=== PATIENT | male | born 1980 | race Caucasian/White ===

== ENCOUNTER 2019-06-16 07:14 | Emergency (ER) | payer BC ==
[2019-06-16 08:06] LABS: Absolute Lymphocytes (CBC) 1.9 K/uL (0.7-4.9); Basophils % 0.7 % (0-1.3); MPV 7.7 fL (7.6-11.3); RBC Red Blood Cell Count 4.85 M/uL (4.33-5.43)
[2019-06-16 08:24] LABS: BUN Blood Urea Nitrogen 10 mg/dL (7-18); Bicarbonate 26 mmol/L (21-32); Glucose Level 100 mg/dL (74-106); Potassium 3.9 mmol/L (3.5-5.1); Sodium Level 139 mmol/L (136-145); Troponin (Emerg Dept Use Only) < 0.02 ng/mL (0.0-0.045)
--- NOTE | 2019-06-16 08:28 | ER ---
Nurse's Notes [facility] Name: Barrington Sunshine III Age: 39 yrs Sex: Male : 1980 Arrival Date: 06/16/2019 Time: 07:15 Bed 6 Private MD: Diagnosis: Chest pain, unspecified Presentation: 06/15 07:23 Chief complaint: Right sided chest pain that radiates to right shoulder and mild SOB hb since last night. Coronavirus screen: Proceed with normal triage. Ebola Screen: No symptoms or risks identified at this time. Initial Sepsis Screen: Does the patient meet any 2 criteria? No. Patient's initial sepsis screen is negative. Does the patient have a suspected source of infection? No. Patient's initial sepsis screen is negative. Risk Assessment: Do you want to hurt yourself or someone else? Patient reports no desire to harm self or others. Onset of symptoms was June 15, 2019. 07:23 Method Of Arrival: Ambulatory hb 07:23 Acuity: MISAEL 3 hb Triage Assessment: 07:26 General: Appears in no apparent distress. comfortable, obese, Behavior is cooperative, bp appropriate for age, anxious. Pain: Complains of pain in chest. EENT: No deficits noted. Neuro: No deficits noted. Cardiovascular: Rhythm is sinus rhythm. Respiratory: No deficits noted. GI: No signs and/or symptoms were reported involving the gastrointestinal system. : No signs and/or symptoms were reported regarding the genitourinary system. Derm: No deficits noted. Musculoskeletal: No deficits noted. Historical: - Allergies: 07:25 No Known Allergies; hb - Home Meds: 07:25 None [Active]; hb - PMHx: 07:25 None; hb - PSHx: 07:25 Shoulder - Left; Knee - Left; hb - Immunization history:: Adult Immunizations up to date. - Social history:: Smoking status: Patient denies any tobacco usage or history of. Screenin:26 Abuse screen: Denies threats or abuse. Denies injuries from another. Nutritional hb screening: No deficits noted. Tuberculosis screening: No symptoms or risk factors identified. Fall Risk None identified. Assessment: 07:27 General: SEE TRIAGE NOTE. bp 08:40 Reassessment: PT D/C HOME AMBULATORY, DX WITH NON-CARDIAC CHEST PAIN. bp Vital Signs: 07:23 BP 139 / 98; Pulse 97; Resp 20; Temp 97.2; Pulse Ox 98% ; Weight 149.69 kg; Height 6 hb ft. (182.88 cm); Pain 4/10; 08:01 BP 132 / 88; Pulse 84; Resp 16; Pulse Ox 96% ; bp 08:40 BP 133 / 88; Pulse 85; Resp 19; Pulse Ox 97% ; bp 07:23 Body Mass Index 44.76 (149.69 kg, 182.88 cm) hb ED Course: 07:15 Patient arrived in ED. as 07:25 Triage completed. hb 07:25 Sy Porter, RN is Primary Nurse. bp 07:25 Arm band placed on. hb 07:26 Patient has correct armband on for positive identification. Placed in gown. Bed in low hb position. Call light in reach. classroom monitor on. Pulse ox on. NIBP on. 07:27 Patient maintains SpO2 saturation greater than 95% on room air. bp 07:38 Romario Lizama FNP-C is PHCP. la1 07:38 Grey Dolan MD is Attending Physician. la1 07:38 Wellington Rivera MD is Attending Physician. la1 07:55 Inserted saline lock: 20 gauge in right forearm, using aseptic technique. Blood bp collected. 08:25 EKG done, by screen making technician. reviewed by Romario ROSAS. at1 08:40 No provider procedures requiring assistance completed. IV discontinued, intact, bp bleeding controlled, No redness/swelling at site. Pressure dressing applied. Administered Medications: No medications were administered Outcome: 08:27 Discharge ordered by MD. la1 08:40 Discharged to home ambulatory. bp 08:40 Condition: stable 08:40 Discharge instructions given to patient, Instructed on discharge instructions, follow up and referral plans. Demonstrated understanding of instructions, follow-up care. 08:41 Patient left the ED. bp Signatures: Heather Newby Amanda, news producer EKG Tat1 Romario Lizama FNP-C FNP-Cla1 Grisel Ceballos, RN RN hb Sy Porter, RN RN bp
--- NOTE | 2019-06-16 08:28 | EDPHYS ---
[facility] Bar[facility] Age: 39 yrs Sex: Male : 1980 Arrival Date: 06/16/2019 Time: 07:15 Bed 6 Private MD: ED Physician Wellington Rivera HPI: 06/15 07:43 This 39 yrs old Male presents to ER via Ambulatory with complaints of Chest la1 Pain. 07:43 The patient or guardian reports chest pain that is located primarily in the anterior la1 chest wall, right. The pain does not radiate. Associated signs and symptoms: The patient has no apparent associated signs or symptoms. The chest pain is described as sharp. Duration: The patient or guardian reports multiple episodes, that are intermittent. Modifying factors: the symptoms are aggravated by deep breath, movement. Severity of pain: At its worst the pain was mild. The patient has not experienced similar symptoms in the past. pt reports pain in right anterior chest wall, worse with movement of neck, pain with palpation to area of right anterior chest wall. Pt states no pain at rest, no associated s/sx.. Historical: - Allergies: 07:25 No Known Allergies; hb - Home Meds: 07:25 None [Active]; hb - PMHx: 07:25 None; hb - PSHx: 07:25 Shoulder - Left; Knee - Left; hb - Immunization history:: Adult Immunizations up to date. - Social history:: Smoking status: Patient denies any tobacco usage or history of. ROS: 07:44 Constitutional: Negative for fever, chills, and weight loss, Eyes: Negative for injury, la1 pain, redness, and discharge, ENT: Negative for injury, pain, and discharge. 07:44 Abdomen/GI: Negative for abdominal pain, nausea, vomiting, diarrhea, and constipation, Back: Negative for injury and pain, MS/Extremity: Negative for injury and deformity, Skin: Negative for injury, rash, and discoloration, Neuro: Negative for headache, weakness, numbness, tingling, and seizure. 07:44 Cardiovascular: Positive for chest pain, with movement, of the anterior aspect of right upper chest. Exam: 07:45 Constitutional: This is a well developed, well nourished patient who is awake, alert, la1 and in no acute distress. Head/Face: Normocephalic, atraumatic. Chest/axilla: Normal chest wall appearance and motion. tenderness to palpation to right anterior chest wall, pt reports this pain is the exact pain that brought him to the emergency department. No lesions are appreciated. Cardiovascular: Regular rate and rhythm with a normal S1 and S2. No gallops, murmurs, or rubs. Normal PMI, no JVD. No pulse deficits. Respiratory: Lungs have equal breath sounds bilaterally, clear to auscultation Abdomen/GI: Soft, non-tender, with normal bowel sounds. Skin: Warm, dry with normal turgor. Normal color with no rashes, no lesions, and no evidence of cellulitis. MS/ Extremity: Pulses equal, no cyanosis. Neurovascular intact. Full, normal range of motion. Vital Signs: 07:23 BP 139 / 98; Pulse 97; Resp 20; Temp 97.2; Pulse Ox 98% ; Weight 149.69 kg; Height 6 hb ft. (182.88 cm); Pain 4/10; 08:01 BP 132 / 88; Pulse 84; Resp 16; Pulse Ox 96% ; bp 08:40 BP 133 / 88; Pulse 85; Resp 19; Pulse Ox 97% ; bp 07:23 Body Mass Index 44.76 (149.69 kg, 182.88 cm) hb MDM: 07:43 Patient medically screened. la1 08:25 Differential diagnosis: acute myocardial infarction, anxiety, chest wall pain, la1 congestive heart failure costochondritis, esophagitis, gastritis. Data reviewed: vital signs, nurses notes, EKG, and as a result, I will discharge patient. Data interpreted: Pulse oximetry: on room air is 96 %. Interpretation: normal. 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 Special discussion: Based on the patient's history, exam, and Dx evaluation, there is no indication for emergent intervention or inpatient Tx. It is understood by the patient/guardian that if the Sx's persist or worsen they need to return immediately for re-evaluation. 06/15 07:42 Order name: CBC with Diff; Complete Time: 08:24 la1 06/15 07:42 Order name: BMP; Complete Time: 08:24 06/15 07:42 Order name: IV; Complete Time: 07:59 06/15 07:42 Order name: Troponin (emerg Dept Use Only); Complete Time: 08:24 06/15 07:42 Order name: EKG; Complete Time: 07:43 06/15 07:42 Order name: EKG - Nurse/Tech; Complete Time: 08:21 la EC:24 Rate is 79 beats/min. Rhythm is regular. QRS [place] is Normal. NH interval is normal. QRS la1 interval is normal. No Q waves. T waves are Inverted in lead aVR. No ST changes noted. Clinical impression: Normal ECG. Interpreted by me. Reviewed by me. Administered Medications: No medications were administered Disposition: 11:31 Co-signature as Attending Physician, Wellington Rivera MD I agree with the assessment and kdr plan of care. Disposition: 06/16/19 08:27 Discharged to Home. Impression: Chest pain, unspecified. - Condition is Stable. - Discharge Instructions: Chest Wall Pain, [id number], Nonspecific Chest Pain, [id number]. - Medication Reconciliation Form, Thank You Letter form. - Follow up: Private Physician; When: 2 - 3 days; Reason: Recheck today's complaints, Continuance of care, Re-evaluation by your physician. Follow up: Emergency Department; When: As needed; Reason: Trouble breathing, Worsening of condition. Signatures: Dispatcher [employer] EDMS Wellington Rivera MD MD [facility] Romario Lizama, SUPERVISOR [employer]ERS AND EMULSIFIERS-C [employer]PERVISOR [employer]-Cla1 Grisel Ceballos, RN RN Sy Porter, RN RN bp Corrections: (The following items were deleted from the chart) 07:49 07:45 Constitutional: This is a well developed, well nourished patient who is awake, la1 alert, and in no acute distress. Head/Face: Normocephalic, atraumatic. Chest/axilla: Normal chest wall appearance and motion. Nontender with no deformity. No lesions are appreciated. Cardiovascular: Regular rate and rhythm with a normal S1 and S2. No gallops, murmurs, or rubs. Normal PMI, no JVD. No pulse deficits. Respiratory: Lungs have equal breath sounds bilaterally, clear to auscultation Abdomen/GI: Soft, non-tender, with normal bowel sounds. Skin: Warm, dry with normal turgor. Normal color with no rashes, no lesions, and no evidence of cellulitis. MS/ Extremity: Pulses equal, no cyanosis. Neurovascular intact. Full, normal range of motion. la1 08:41 08:27 06/16/2019 08:27 Discharged to Home. Impression: Chest pain, unspecified. bp Condition is Stable. Forms are Medication Reconciliation Form, Thank You Letter, Antibiotic Education, Prescription Opioid Use. Follow up: Private Physician; When: 2 - 3 days; Reason: Recheck today's complaints, Continuance of care, Re-evaluation by your physician. Follow up: Emergency Department; When: As needed; Reason: Trouble breathing, Worsening of condition. la1
[2019-06-16 09:00] VITALS: TEMP 97.2
[2019-06-16 09:02] VITALS: BP 133/88; O2SAT 97
--- NOTE | 2019-06-16 12:03 | EKG ---
Test Date: 2019-06-16 Test Time: 08:20:34 Supervisor [employer]: KARLA Acevedo MEASUREMENT RESULTS: Intervals: Rate: 79 MA: 172 QRSD: 88 QT: 368 QTc: 421 [place]: P: 40 MA: 172 QRS: 27 T: 27 INTERPRETIVE STATEMENTS: Normal sinus rhythm Normal ECG Compared to ECG 02/19/2017 19:05:25 No significant changes Electronically Signed On 06-16-19 12:02:09 CDT by Leeroy Saldana
== END 2019-06-16 08:41 | disposition home or self-care (01) ==
LOC: ER 07:14
DX: R07.9 Chest pain, unspecified (principal)
CPT/HCPCS: 36415; 80048; 84484; 85025; 93005; 99285